=== PATIENT | male | born 1990 | race Caucasian/White ===

== ENCOUNTER 2016-10-18 16:58 | Emergency (ER) | payer SELFPAY ==
[2016-10-18 17:31] LABS: Hematocrit 42.9 % (42.0-52.0); Hemoglobin 15.1 gm/dL (13.5-18.0); Mean Cell Volume 83.3 fl (78-100); Mean Corpuscular Hemoglobin 29.3 pg (27-31); Mean Corpuscular Hgb Conc 35.2 g/dl (32-36); Mean Platelet Volume 8.3 fl (6.0-9.5); Neutrophil # 10.7 K/mm3 (1.3-6.0); Platelet Count 288 K/mm3 (150-450); Red Blood Count 5.15 M/mm3 (4.7-6.0); Red Cell Distribution Width 12.4 % (11.5-14.0); White Blood Count 12.7 K/mm3 (4.0-10.5)
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
[2016-10-18 17:55] LABS: Albumin * 4.1 gm/dl (3.4-5.0); Anion Gap 17.7 mmol/L (6.8-13.8); BUN/Creatinine Ratio 11.5 (9.0-21.6); Bilirubin, Total 0.7 mg/dL (0.0-1.1); Calcium * 8.4 mg/dL (7.9-10.9); Carbon Dioxide 24.3 mmol/L (24-32.6); TSH * 1.988 uIU/mL (0.358-3.74); Total Protein 7.4 gm/dL (6.2-8.2)
--- OUTSIDE RECORDS SUMMARY | 2016-10-18 18:25 | XMS REPORT | Continuity of Care Document ---
:1990 Author Organization [facility] ([facility]) [place] [address] Phone [phone] Care Team Providers Name Role Phone Provider, No-Primary Care Primary Care Provider Unavailable Source Comments This disclosure is being made pursuant to the Care Everywhere program, applicable federal and state laws, and may not contain all informaitonavailable regarding this patient.[facility] ([facility]) Active Allergies and Adverse Reactions Not on File Current Medications Not on file Active Problems Not on file Social History Tobacco Use Types Packs/Day Years Used Date Never Assessed Plan of Care Health Maintenance Due Date Last Done Comments Hepatitis B Vaccine (1 of 3 - Primary Series) 1990 Tdap Vaccine 02/18/2000 Lipid Disorder Screening 2007 MMR Vaccine 2007 Td Vaccine 2007 Varicella Vaccine (1 of 2 - Adult - No Evidence of 2007 Immunity) Influenza Vaccine: Seasonal (#1) 02/18/2016 Results from Last 3 Months Not on file
[2016-10-18 19:17] LABS: Urine Appearance Clear; Urine Bacteria None Seen; Urine Bilirubin Negative (NEGATIVE); Urine Blood Negative /ul (NEGATIVE); Urine Color Yellow; Urine Ketone Negative (NEGATIVE); Urine Nitrite Negative (NEGATIVE); Urine Protein Negative (NEGATIVE); Urine RBC None Seen /hpf (0-5); Urine Urobilinogen Normal (NORMAL); Urine WBC None Seen /hpf (0-5); Urine pH 5.5 pH (5.0-7.0)
[2016-10-18 19:20] LABS: Cocaine Ur Negative (NEGATIVE); Urine Barbiturate Negative (NEGATIVE); Urine Benzodiazepines Negative (NEGATIVE); Urine Opiates Negative (NEGATIVE); Urine PCP Negative (NEGATIVE)
[2016-10-18 19:21] LABS: Urine THC Positive (NEGATIVE)
[2016-10-18 21:38] VITALS: BP 116/97
== END 2016-10-18 21:36 | disposition home or self-care (01) ==
LOC: ER 16:58
DX: R56.9 Unspecified convulsions (principal); R53.81 Other malaise; F17.210 Nicotine dependence, cigarettes, uncomplicated
CPT/HCPCS: 36415; 70450; 80053; 80307; 81001; 84443; 85025; 96365; 99284; G0481

== ENCOUNTER 2016-10-20 11:04 | Emergency (ER) | payer SELFPAY ==
--- OUTSIDE RECORDS SUMMARY | 2016-10-20 13:11 | XMS REPORT | Continuity of Care Document ---
:1990 Author Organization [facility] ([facility]) [place] [address] Phone [phone] Care Team Providers Name Role Phone Provider, No-Primary Care Primary Care Provider Unavailable Source Comments This disclosure is being made pursuant to the Care Everywhere program, applicable federal and state laws, and may not contain all informaitonavailable regarding this patient.[facility] ([facility]) Active Allergies and Adverse Reactions Not on [...]
--- NOTE | 2016-10-20 13:21 | ERNOTE ---
Date of Service: 10/20/16 Time Seen by Provider: 10/20/16 12:54 Stated Complaint: SPITTING UP BLOOD Presenting Symptoms:: cough Source: patient Exam Limitations: no limitations Immunizations: IMMUNIZATION HX Immunizations Up to Date Yes History of Influenza Vaccine No Hx Pneumococcal Vaccination No Allergies/Adverse Reactions: Allergies No Known Allergies Allergy (Verified 10/20/16 11:28) Home Medications: HOME MEDICATIONS Amox Tr/Potassium Clavulanate [Augmentin 875-125 Tablet] 875 mg PO Q12H #20 tab 10/20/16 [Last Taken Unknown] levETIRAcetam [Keppra] 500 mg PO BID 10/20/16 [Last Taken Unknown] - History of Present Ilness Narrative: Pt. comes in with c/o spitting up blood ever since he had two seizures three days ago. Pt. denies any seizure activity or other injuries since his previous visit to this facility three days ago. Pt. denies any aggravating or alleviating factors. Pt. denies any change in the amount of blood that he is spitting up. Review of Systems - Review of Systems Constitutional: Present: no symptoms reported. Absent: recent illness, fever, chills, weakness, fatigue, malaise EYE: Present: no symptoms reported ENT: Present: other - spitting out blood. Absent: ear pain, ear discharge, pulling on ears, nose pain, nose congestion, nasal drainage, sore throat, throat swelling Respiratory: Present: no symptoms reported. Absent: shortness of breath, cough , wheezing Cardiology: Present: no symptoms reported. Absent: chest pain, palpitations, edema Gastrointestinal/Abdominal: Present: no symptoms reported. Absent: nausea, vomiting, diarrhea, abdominal pain Genitourinary: Present: no symptoms reported Musculoskeletal: Present: no symptoms reported. Absent: back pain, joint pain Neurological: Present: no symptoms reported. Absent: headache, dizziness/light- headedness, numbness, tingling All Other Systems: All systems neg except as marked - Patient's Past Medical History Patient History - Medical: No pertinent hx Patient History - Cardiac/Respiratory: No pertinent hx Patient History - Cancer: No Hx of Cancer Patient History - Surgical Procedures: No surgical history Patient History - Other: None - Family History Mother Family History - Medical: UTI'S Family History - Cardiac/Respiratory: Hypertension Father Family History - Cardiac/Respiratory: History Unknown Brother Family History - Medical: No pertinent hx, Other - Social History Living Situations: home Abuse History: No History of abuse Psych History: No pertinent hx Alcohol Use: occasionally Drug Use: none, marijuana - Immunizations Immunizations Up to Date: Yes Hx Pneumococcal Vaccination: No History of Influenza Vaccine: No Physical Exam - Physical Exam General Appearance: Present: wd/wn, alert, no apparent distress Eye Exam: Normal inspection: bilateral, PERRL: bilateral, EOMI: bilateral Ears, Nose, Throat: Present: nasal congestion, normal pharynx, other - tongue and oral mucus membranes intact blood notes in nares but nares intact feel that this is post nasal blood Neck: Present: normal inspection, nontender. Absent: lymphadenopathy (R), lymphadenopathy (L) Respiratory: Present: no respiratory distress, normal breath sounds, no accessory muscle use, chest nontender, lungs clear Cardiovascular/Chest: Present: regular rate, rhythm, no murmur, normal peripheral pulses Gastrointestinal/Abdominal: Present: normal bowel sounds, nontender, nondistended, soft, no organomegaly Back Exam: Present: normal inspection Extremity Exam: Present: normal inspection Skin Exam: Present: normal color, warm/dry. Absent: pallor, skin rash ED Progress - Date and Time Seen: Date and Time: 10/20/16 15:[address] Avila and we will start pt. on afrin and have him follow up with her tomorrow in [place]. - Results and Orders Patient's Lab Results:: I have reviewed the patient's lab results. - Vital Signs Patient's Vital Signs:: I have reviewed the patient's vital signs. Vital Signs: Vital Signs 10/20/16 11:21 Temperature 36.7 C Pulse Rate 81 Respiratory 18 Rate Blood Pressure 125/74 O2 Sat by Pulse 97 Oximetry - CT/Ultrasound CT/Ultrasound Narrative: CT with maxillary ridge and nasal bone fracture. - Progress/Reassessment Chief Complaint: Cough Departure - Departure Clinical Impression: Nasal bone fracture Qualifiers: Encounter type: initial encounter Fracture type: open Qualified Code(s): S02.2XXB - Fracture of nasal bones, initial encounter for open fracture Closed fracture of alveolar ridge of maxilla Qualifiers: Encounter type: initial encounter Qualified Code(s): S02.42XA - Fracture of alveolus of maxilla, initial encounter for closed fracture Disposition: Home self-care Condition: Good Instructions: Nasal Fracture Additional Instructions: Please follow up with Dr Avila tomorrow in [place] at the hosptial anytime after 9 am. Prescriptions: Amox Tr/Potassium Clavulanate [Augmentin 875-125 Tablet] 875 mg PO Q12H #20 tab
[2016-10-20 13:41] LABS: Hematocrit 44.2 % (42.0-52.0); Hemoglobin 15.6 gm/dL (13.5-18.0); Mean Cell Volume 82.3 fl (78-100); Mean Corpuscular Hemoglobin 29.1 pg (27-31); Mean Corpuscular Hgb Conc 35.3 g/dl (32-36); Mean Platelet Volume 8.6 fl (6.0-9.5); Neutrophil # 5.3 K/mm3 (1.3-6.0); Neutrophil % 66.2 % (42-75.0); Platelet Count 283 K/mm3 (150-450); Red Blood Count 5.37 M/mm3 (4.7-6.0); Red Cell Distribution Width 12.4 % (11.5-14.0)
[2016-10-20 13:49] LABS: Prothrombin Time (Patient) 11.7 Seconds (9.4-11.4)
[2016-10-20 13:51] LABS: INR 1.13 INR (0.90-1.10)
[2016-10-20] MEDS ORDERED: OXYMETAZOLINE HCL 150 SPRAY BTL NS ONE (14:29)
[2016-10-20] MEDS ORDERED: OXYMETAZOLINE HCL 150 SPRAY BTL ONE (14:39)
[2016-10-20 15:37] VITALS: BP 154/73
== END 2016-10-20 15:37 | disposition home or self-care (01) ==
LOC: ER 11:04
DX: S02.2XXB Fracture of nasal bones, initial encounter for open fracture (principal); S02.42XA Fracture of alveolus of maxilla, initial encounter for closed fracture

== ENCOUNTER 2016-12-01 16:43 | Emergency (ER) | payer SELFPAY ==
[2016-12-01 17:18] LABS: Hematocrit 41.7 % (42.0-52.0); Mean Cell Volume 81.4 fl (78-100); Mean Corpuscular Hemoglobin 29.3 pg (27-31); Mean Platelet Volume 8.5 fl (6.0-9.5); Neutrophil # 3.8 K/mm3 (1.3-6.0); Neutrophil % 58.8 % (42-75.0); Platelet Count 326 K/mm3 (150-450); Red Blood Count 5.12 M/mm3 (4.7-6.0); Red Cell Distribution Width 12.2 % (11.5-14.0); White Blood Count 6.4 K/mm3 (4.0-10.5)
[2016-12-01 17:34] LABS: ALT 19 U/L (19-67); AST 15 U/L (0-48); Albumin * 4.4 gm/dl (3.4-5.0); Alkaline Phosphatase * 57 U/L (50-170); Anion Gap 14.3 mmol/L (6.8-13.8); BUN/Creatinine Ratio 11.5 (9.0-21.6); Bilirubin, Total 0.9 mg/dL (0.0-1.1); Blood Urea Nitrogen 13 mg/dL (6-23); Ca. Corrected For Albumin 8.8 mg/dL (8.4-10.2); Calcium * 9.4 mg/dL (7.9-10.9); Carbon Dioxide 28.8 mmol/L (24-32.6); Chloride 105 mmol/L (97-106); Glucose * 92 mg/dL (70-110); Potassium 4.1 mmol/L (3.4-4.6); Salicylate Less than 2.8 mg/dL (2.8-20.0); Sodium 144 mmol/L (132-142); TSH * 2.018 uIU/mL (0.358-3.74); Total Protein 7.7 gm/dL (6.2-8.2)
[2016-12-01 20:10] LABS: Urine Bilirubin Negative (NEGATIVE); Urine Blood Negative /ul (NEGATIVE); Urine Ketone 15 mg/dL (NEGATIVE); Urine Nitrite Negative (NEGATIVE); Urine Protein Negative (NEGATIVE); Urine Specific Gravity >=1.030 SP.GR. (1.005-1.030); Urine Urobilinogen Normal (NORMAL)
[2016-12-01 20:20] LABS: Urine Appearance Clear; Urine Bacteria None Seen; Urine Color Yellow; Urine RBC None Seen /hpf (0-5); Urine WBC None Seen /hpf (0-5)
[2016-12-01 20:23] LABS: Cocaine Ur Negative (NEGATIVE); Urine Barbiturate Negative (NEGATIVE); Urine Benzodiazepines Negative (NEGATIVE); Urine Opiates Negative (NEGATIVE); Urine PCP Negative (NEGATIVE); Urine THC Positive (NEGATIVE)
--- NOTE | 2016-12-01 20:34 | ERNOTE ---
Psychological HPI - General Chief Complaint: Psychiatric Problem Source: Reports: patient Exam Limitations: Reports: no limitations - Immun/Allergies/Home Medications Allergies/Adverse Reactions: Allergies No Known Allergies Allergy (Verified 12/01/16 16:55) Home Medications: HOME MEDICATIONS NK [No Home Medication] 12/01/16 [Last Taken Unknown] - History of Present Illness Narrative: Here for having thoughts of hurting and killing himself, he has a plan and admits to having felt depressed Time Seen by Provider: 12/01/16 20:29 Review of Systems - Review of Systems Constitutional: Present: no symptoms reported EYE: Present: no symptoms reported ENT: Present: no symptoms reported Respiratory: Present: no symptoms reported Cardiology: Present: no symptoms reported Gastrointestinal/Abdominal: Present: no symptoms reported Genitourinary: Present: no symptoms reported - Patient's Past Medical History Patient History - Medical: No pertinent hx Patient History - Cardiac/Respiratory: No pertinent hx Patient History - Cancer: No Hx of Cancer Patient History - Surgical Procedures: No surgical history Patient History - Other: None - Family History Mother Family History - Medical: UTI'S Family History - Cardiac/Respiratory: Hypertension Father Family History - Cardiac/Respiratory: History Unknown Brother Family History - Medical: No pertinent hx, Other - Social History Living Situations: home Abuse History: No History of abuse Psych History: No pertinent hx Alcohol Use: occasionally Drug Use: none, marijuana - Immunizations Immunizations Up to Date: Yes Hx Pneumococcal Vaccination: No History of Influenza Vaccine: No Physical Exam - Physical Exam General Appearance: Present: wd/wn, alert, no apparent distress Ears, Nose, Throat: Present: normal ENT inspection Neck: Present: normal inspection, supple Respiratory: Present: no respiratory distress, normal breath sounds, no accessory muscle use, chest nontender, lungs clear Cardiovascular/Chest: Present: regular rate, rhythm, no murmur Neurological Exam: Present: alert, oriented, normal mood/affect, no motor/ sensory deficits ED Progress - Vital Signs Patient's Vital Signs:: I have reviewed the patient's vital signs. Vital Signs: Vital Signs 12/01/16 16:49 Temperature 35.9 C L Pulse Rate 72 Respiratory 14 Rate Blood Pressure 135/91 O2 Sat by Pulse 98 Oximetry - Progress/Reassessment Chief Complaint: Psychiatric Problem Plan - Plan Plan: Will ask [facility] to evaluate pt and arrive for pat to be taken to a facility to be safe and to address his thoughts of suicide.[facility] did accept him to their facility to keep patient safe. pt is stable for transfer Departure Clinical Impression: Suicidal ideations Clinical Impression: (Ruled Out): Substance abuse - Departure Disposition: Other home health
--- OUTSIDE RECORDS SUMMARY | 2016-12-01 20:36 | XMS REPORT | Continuity of Care Document ---
:1990 Author Organization [facility] ([facility]) [place] [address] Phone [phone] Care Team Providers Name Role Phone Provider, No-Primary Care Primary Care Provider Unavailable Source Comments This disclosure is being made pursuant to the Care Everywhere program, applicable federal and state laws, and may not contain all informaitonavailable regarding this patient.[facility] ([facility]) Active Allergies and Adverse Reactions Not on [...]
[2016-12-02 00:31] VITALS: BP 124/65
== END 2016-12-02 00:20 | disposition short-term general hospital (02) ==
LOC: ER 16:43
DX: R45.851 Suicidal ideations (principal)
CPT/HCPCS: 36415; 80053; 80307; 81001; 84443; 85025; 99283; G0480; G0481

== ENCOUNTER 2018-05-29 08:04 | Observation (INO) ==
[2018-05-29] MEDS ORDERED: LORazepam 2 MG/ML DISP.SYRIN ONE ×3 (08:23→10:07)
[2018-05-29] MEDS ORDERED: LORazepam 2 MG/ML DISP.SYRIN IM ONE ×3 (08:26→08:56)
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
[2018-05-29 09:26] LABS: Hematocrit 40.1 % (42.0-52.0); Hemoglobin 14.2 gm/dL (13.5-18.0); Mean Cell Volume 82.5 fl (78-100); Mean Corpuscular Hemoglobin 29.2 pg (27-31); Mean Corpuscular Hgb Conc 35.4 g/dl (32-36); Mean Platelet Volume 8.7 fl (8-11.3); Neutrophil # 7.1 K/mm3 (1.3-6.0); Neutrophil % 71.9 % (42-75.0); Platelet Count 311 K/mm3 (150-450); Red Blood Count 4.86 M/mm3 (4.7-6.0); Red Cell Distribution Width 13.1 % (11.5-14.0); White Blood Count 9.9 K/mm3 (4.0-10.5)
[2018-05-29 09:34] LABS: Albumin * 4.1 gm/dl (3.4-5.0); Anion Gap 19.9 mmol/L (6.8-13.8); BUN/Creatinine Ratio 13.1 (9.0-21.6); Bilirubin, Total 0.5 mg/dL (0.0-1.1); Ca. Corrected For Albumin 8.4 mg/dL (8.4-10.2); Calcium * 8.8 mg/dL (7.9-10.9); Potassium 3.9 mmol/L (3.4-4.6); Total Protein 7.5 gm/dL (6.2-8.2)
[2018-05-29] MEDS ORDERED: NORMAL SALINE 500 ML IV ONE (09:50)
[2018-05-29 09:51] LABS: Urine Appearance Clear (CLEAR); Urine Bilirubin Negative (NEGATIVE); Urine Color Yellow; Urine Ketone Negative (NEGATIVE)
[2018-05-29 09:52] LABS: Urine Bacteria None Seen; Urine Nitrite Negative (NEGATIVE); Urine Protein Negative (NEGATIVE); Urine RBC 0-5 /hpf (0-5); Urine Urobilinogen Normal (NORMAL); Urine WBC 0-5 /hpf (0-5); Urine pH 5.5 pH (5.0-7.0)
[2018-05-29 09:53] LABS: Urine Blood 5 /ul (NEGATIVE)
[2018-05-29 09:56] LABS: Cocaine Ur Negative (NEGATIVE); Urine Barbiturate Negative (NEGATIVE); Urine Benzodiazepines Negative (NEGATIVE); Urine Opiates Negative (NEGATIVE); Urine PCP Negative (NEGATIVE)
[2018-05-29 09:57] LABS: Urine THC Positive (NEGATIVE)
[2018-05-29] MEDS ORDERED: LORazepam 2 MG/ML DISP.SYRIN IV ONE ×2 (10:12→12:22)
[2018-05-29] MEDS: NORMAL SALINE 1,000 ML IV PRN ×2 (10:26→12:07)
[2018-05-29] MEDS: levETIRAcetam 500 MG TABLET PO SCH ×2 (15:13→20:36)
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
[2018-05-29] MEDS: ACETAMINOPHEN 500 MG TABLET PO PRN (20:36)
[2018-05-29] MEDS ORDERED: levETIRAcetam 500 MG TABLET PO SCH (21:00)
[2018-05-30] MEDS: NORMAL SALINE 1,000 ML IV PRN (01:12)
[2018-05-30] MEDS: ACETAMINOPHEN 500 MG TABLET PO PRN (05:39)
[2018-05-30] MEDS ORDERED: hydrOXYzine HCL 25 MG TABLET PO SCH (09:00)
[2018-05-30] MEDS ORDERED: SERTRALINE HCL 50 MG TABLET PO SCH ×3 (09:00)
[2018-05-30] MEDS: levETIRAcetam 500 MG TABLET PO SCH (09:09)
--- NOTE | 2018-05-30 11:25 | DS ---
(1) Seizures Problem: Chronic Qualifiers: Convulsion type: post-traumatic Qualified Code(s): R56.1 - Post traumatic seizures (2) Combative behavior Problem: Resolved (3) Altered mental status Problem: Resolved Qualifiers: Altered mental status type: transient alteration of awareness Qualified Code(s): R40.4 - Transient alteration of awareness Description of Stay: Nimesh Bonilla is a 28 yo wh. male who was admitted for seizures and combative behavior. His initial seizure yesterday was at home. He had a 2nd seizure in the ER. He was given ativan, and Keppra IV. I started on therapeutic dosing of Keppra and increased the dose of his Sertraline to 50mg/day. close monitoring of his depression is recommended in followup tx. This morning he is alert and conversant. He doesn't remember anything about my talking to him yesterday or the examination. His neurological exam today is normal. His affect is despondent. Procedures Performed: none Results and Findings: Lab Pending Results 05/29/18 09:15: WBC 9.9, RBC 4.86, Hgb 14.2, Hct 40.1 L, MCV 82.5, MCH 29.2, MCHC 35.4, RDW 13.1, Plt Count 311, MPV 8.7, Immature Gran % (Auto) 0.70 H, Immature Gran # (Auto) 0.07 H, Neutrophils % 71.9, Lymphocytes % 18.1 L, Monocytes % 8.2, Eosinophils % 0.5, Basophils % 0.6, Nucleated RBC % 0.0, Neutrophils # 7.1 H, Lymphocytes # 1.79, Monocytes # 0.8, Eosinophils # 0.1, Absolute Basophils 0.1 05/29/18 09:15: Sodium 141, Plasma Sodium 141, Potassium 3.9, Chloride 105, Carbon Dioxide 20.0 L, Anion Gap 19.9 H, BUN 17, Creatinine 1.30, Est GFR (Non- Af Amer) 69, BUN/Creatinine Ratio 13.1, Random Glucose 99, Calcium 8.8, Calcium Adj for Albumin 8.4, Total Bilirubin 0.5, AST 17, ALT 34, Alkaline Phosphatase 55, Total Protein 7.5, Albumin 4.1 05/29/18 09:41: Urine Color Yellow, Urine Appearance Clear, Urine pH 5.5, Ur Specific [place] 1.030, Urine Protein Negative, Urine Glucose (UA) Negative, Urine Ketones Negative, Urine Blood 5 H, Urine Nitrate Negative, Urine Bilirubin Negative, Urine Urobilinogen Normal, Ur Leukocyte Esterase Negative, Urine RBC 0-5, Urine WBC 0-5, Ur Epithelial Cells None seen, Urine Bacteria None seen, Urine Culture Comments No culture indicated 05/29/18 09:41: Urine Opiates Screen Negative, Barbiturate Screen Negative, Ur Phencyclidine Scrn Negative, Urine Amphetamine Negative, U Benzodiazepines Scrn Negative, Urine Cocaine Screen Negative, Urine Marijuana (THC) Positive H Discharge Location: Home Disposition: Home self-care Condition: Fair Discharge Activity: Activity as tolerated Discharge Diet: General/regular food Additional Patient Instructions (free text): See PCP in 2 weeks in the office. Do not stop or miss any doses of your Keppra. Get adequate sleep each night Avoid alcohol avoid flashing lights avoid stimulants. (energy drinks, amphetamines, etc.) Complete Home Medications List: Complete Home Medication List: Acetaminophen [Tylenol] 1,000 mg PO Q6H PRN tablet 05/30/18 Sertraline HCl [Zoloft] 50 mg PO DAILY #30 tablet 05/30/18 levETIRAcetam [Keppra] 1,500 mg PO BID #180 tablet 05/30/18
[2018-05-30 12:18] VITALS: BP 131/72
== END 2018-05-30 12:00 | disposition home or self-care (01) ==
LOC: ER 08:04 → INTOOBSV 13:35 → MS 13:35
PROVIDERS: ADMIT Family Medicine; ATTEND Family Medicine
CPT/HCPCS: 36415; 80053; 80177; 80307; 81001; 85025; 93005; 96365; 96367; 96372; 96375; 99285; G0378; G0479

== ENCOUNTER 2018-09-07 15:24 | Observation (INO) ==
[2018-09-07] MEDS ORDERED: LORazepam 2 MG/ML DISP.SYRIN IM ONE (15:25)
[2018-09-07] MEDS ORDERED: HALOPERIDOL LACTATE 5 MG/ML VIAL IM ONE ×2 (15:25→16:42)
[2018-09-07] MEDS ORDERED: NORMAL SALINE 1,000 ML IV ONE (15:30)
[2018-09-07] MEDS ORDERED: ONDANSETRON HCL/PF 2 MG/ML VIAL ONE (15:55)
[2018-09-07] MEDS ORDERED: ONDANSETRON HCL/PF 2 MG/ML VIAL IV ONE (15:56)
[2018-09-07 16:26] LABS: Hematocrit 40.5 % (42.0-52.0); Hemoglobin 14.4 gm/dL (13.5-18.0); Mean Cell Volume 82.3 fl (78-100); Mean Corpuscular Hemoglobin 29.3 pg (27-31); Mean Corpuscular Hgb Conc 35.6 g/dl (32-36); Mean Platelet Volume 8.2 fl (8-11.3); Neutrophil % 87.6 % (42-75.0); Platelet Count 267 K/mm3 (150-450); Red Blood Count 4.92 M/mm3 (4.7-6.0); Red Cell Distribution Width 12.8 % (11.5-14.0); White Blood Count 11.4 K/mm3 (4.0-10.5)
[2018-09-07] MEDS ORDERED: LORazepam 2 MG/ML DISP.SYRIN ONE (16:43)
[2018-09-07] MEDS ORDERED: LORazepam 2 MG/ML DISP.SYRIN IV ONE (16:43)
[2018-09-07] MEDS ORDERED: HALOPERIDOL LACTATE 5 MG/ML VIAL ONE (16:43)
[2018-09-07] MEDS ORDERED: cefTRIAXone SODIUM 1,000 MG/100 ML BAG IV ONE (16:43)
[2018-09-07 16:48] LABS: ALT 25 U/L (19-67); AST 21 U/L (0-48); Albumin * 4.2 gm/dl (3.4-5.0); Alkaline Phosphatase * 72 U/L (50-170); BUN/Creatinine Ratio 13.1 (9.0-21.6); Bilirubin, Total 0.3 mg/dL (0.0-1.1); Blood Urea Nitrogen 14 mg/dL (6-23); CK Total * 132 U/L (0-259); CRP 4.9 mg/dL (0.0-0.9); Ca. Corrected For Albumin 8.2 mg/dL (8.4-10.2); Calcium * 8.7 mg/dL (7.9-10.9); Carbamazepine 7.4 mcg/mL (4.0-12.0); Carbon Dioxide 24.3 mmol/L (24-32.6); Chloride 104 mmol/L (97-106); Glucose * 167 mg/dL (70-110); Lipase 337 U/L (73-393); Potassium 4.3 mmol/L (3.4-4.6); Salicylate 3.6 mg/dL (2.8-20.0); Sodium 142 mmol/L (132-142); TSH * 1.545 uIU/mL (0.358-3.74); Total Protein 7.8 gm/dL (6.2-8.2)
[2018-09-07 16:51] LABS: Troponin I Less than 0.017 ng/mL (0.00-0.10)
[2018-09-07] MEDS ORDERED: ACYCLOVIR SODIUM 1,000 MG in DEXTROSE 5 % IN WATER 250 ML IV ONE ×2 (17:30)
[2018-09-07 17:41] LABS: Urine Bilirubin Negative (NEGATIVE); Urine Blood Negative /ul (NEGATIVE); Urine Ketone 5 mg/dL (NEGATIVE); Urine Nitrite Negative (NEGATIVE); Urine Protein 30 mg/dL (NEGATIVE); Urine Specific Gravity >=1.030 SP.GR. (1.005-1.030); Urine Urobilinogen Normal (NORMAL)
[2018-09-07 17:52] LABS: Urine Appearance Clear (CLEAR); Urine Bacteria TRACE; Urine Color Yellow; Urine Hyaline Cast 0-5 /LPF; Urine Mucus Few - 1+; Urine RBC 0-5 /hpf (0-5); Urine WBC 0-5 /hpf (0-5)
[2018-09-07 17:55] LABS: Cocaine Ur Negative (NEGATIVE); Urine Barbiturate Negative (NEGATIVE); Urine Benzodiazepines Negative (NEGATIVE); Urine Opiates Negative (NEGATIVE); Urine PCP Negative (NEGATIVE); Urine THC Positive (NEGATIVE)
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
[2018-09-07] MEDS ORDERED: LORazepam 1 MG TABLET PO PRN (20:56)
[2018-09-07] MEDS ORDERED: DOXYCYCLINE MONOHYDRATE 25 MG/5 ML PO SCH (21:00)
[2018-09-07] MEDS ORDERED: DOXYCYCLINE HYCLATE 100 MG TABLET PO SCH (23:00)
[2018-09-07] MEDS: NAPROXEN 500 MG TABLET PO SCH (23:01)
[2018-09-07] MEDS: carBAMazepine 200 MG TABLET PO SCH (23:01)
[2018-09-07] MEDS: GABAPENTIN 300 MG CAPSULE PO SCH (23:01)
[2018-09-07] MEDS: FLUoxetine HCL 20 MG CAPSULE PO SCH (23:01)
[2018-09-07] MEDS ORDERED: diphenhydrAMINE HCL 50 MG CAPSULE PO ONE (23:06)
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
[2018-09-08] MEDS ORDERED: AZITHROMYCIN 250 MG TABLET PO ONE (09:00)
--- NOTE | 2018-09-08 09:09 | DS ---
(1) Seizures Problem: Chronic Qualifiers: Convulsion type: post-traumatic Qualified Code(s): R56.1 - Post traumatic seizures (2) Drug rash Problem: Acute (3) Epididymitis Problem: Acute Description of Stay: Nimesh is a 28 yo male with episodes of altered mental state yesterday. He has known seizure disorder. His girlfriend reports he was confused and combative then had one of his usual absence seizures, then began having convulsions. Since his arrival to the floor he has been at his baseline and no issues. He and his girlfriend are now uncertain if he has been taking his seizure medications. He had recently been started on doxycycline for epididymitis but has an apparent drug rash. This will be discontinued and he will be given 1000mg of azithromycin prior to discharge for treatment of epidiymitis. He was given benedryl and rash improved. Seizure medications will be continued. He will be scheduled a follow up with [facility]. Procedures Performed: none Results and Findings: Lab Pending Results 09/07/18 16:20: WBC 11.4 H, RBC 4.92, Hgb 14.4, Hct 40.5 L, MCV 82.3, MCH 29.3, MCHC 35.6, RDW 12.8, Plt Count 267, MPV 8.2, Immature Gran % (Auto) 0.60 H, Immature Gran # (Auto) 0.07 H, Neutrophils % 87.6 H, Lymphocytes % 6.9 L, Monocytes % 4.6, Eosinophils % 0.0, Basophils % 0.3, Nucleated RBC % 0.0, Neutrophils # 10.0 H, Lymphocytes # 0.79 L, Monocytes # 0.5, Eosinophils # 0.0, Absolute Basophils 0.0 09/07/18 16:20: Sodium 142, Plasma Sodium 143 H, Potassium 4.3, Chloride 104, Carbon Dioxide 24.3, Anion Gap 18.0 H, BUN 14, Creatinine 1.07, Est GFR (Non-Af Amer) 87, BUN/Creatinine Ratio 13.1, Random Glucose 167 H, Calcium 8.7, Calcium Adj for Albumin 8.2 L, Total Bilirubin 0.3, AST 21, ALT 25, Alkaline Phosphatase 72, Creatine Kinase 132, Troponin I Less than 0.017, C-Reactive Prot, Quant 4.9 H, Total Protein 7.8, Albumin 4.2, Lipase 337, TSH 1.545, Salicylates 3.6, Acetaminophen Less than 0.2 L, Carbamazepine 7.4, Ethyl Alcohol Less than 3.0 09/07/18 16:20: Lactic Acid, Venous 4.3 H* 09/07/18 17:28: Urine Color Yellow, Urine Appearance Clear, Urine pH 6.0, Ur Specific [place] >=1.030, Urine Protein 30 H, Urine Glucose (UA) Negative, Urine Ketones 5, Urine Blood Negative, Urine Nitrate Negative, Urine Bilirubin Negative, Prot Sulfosalicylic Acd 2+ H, Urine Urobilinogen Normal, Ur Leukocyte Esterase Negative, Urine RBC 0-5, Urine WBC 0-5, Ur Epithelial Cells 5-10 H, Urine Bacteria Trace, Hyaline Casts 0-5 H, Urine Mucus Few - 1+ H, Urine Culture Comments No culture indicated 09/07/18 17:28: Urine Opiates Screen Negative, Barbiturate Screen Negative, Ur Phencyclidine Scrn Negative, Urine Amphetamine Negative, U Benzodiazepines Scrn Negative, Urine Cocaine Screen Negative, Urine Marijuana (THC) Positive H 09/07/18 20:10: Lactic Acid, Venous 3.2 H* Discharge Location: Home Disposition: Home self-care Condition: Stable Discharge Activity: Activity as tolerated Discharge Diet: General/regular food Referrals: Miguel Castellon DO [Primary Care Provider] - One Week Jeanna Perez MD [Non Staff Physicians] - (Next available to establish for seizures.) Problem Oriented Discharge Instructions to Patient/Family: Seizure, Adult, [id number], Epididymitis Additional Patient Instructions (free text): No additional antibiotics should be needed. In place of the doxycyline we are treating with a one time dose of azithromycin that was given in the hospital. Continue to use naproxen or aleve or ibuprofen and ice to help with swelling. Wear supporting underwear, no boxers. Complete Home Medications List: Complete Home Medication List: carbamazepine 200 mg tablet 200 mg PO BID #60 tab 06/22/18 fluoxetine 20 mg tablet 20 mg PO .COMPLEX #30 tab 08/18/18 gabapentin 300 mg capsule 300 mg PO TID #90 cap 08/18/18 lorazepam 1 mg tablet 1 mg PO BID-TID PRN #20 tab 08/18/18 Naproxen [Naprosyn] 500 mg PO BID #60 tab 09/04/18 FLUoxetine HCL [Prozac] 20 mg PO DAILY cap 09/08/18 Gabapentin [Neurontin] 300 mg PO TID capsule 09/08/18 LORazepam [Ativan] 1 mg PO TID PRN tablet 09/08/18 Naproxen [Naprosyn] 500 mg PO BID tablet 09/08/18 carBAMazepine [Tegretol] 200 mg PO BID tab 09/08/18
[2018-09-08] MEDS: GABAPENTIN 300 MG CAPSULE PO SCH (09:22)
[2018-09-08] MEDS: NAPROXEN 500 MG TABLET PO SCH (09:22)
[2018-09-08] MEDS: FLUoxetine HCL 20 MG CAPSULE PO SCH (09:22)
[2018-09-08] MEDS: carBAMazepine 200 MG TABLET PO SCH (09:22)
[2018-09-08 09:56] VITALS: BP 130/73
== END 2018-09-08 10:15 | disposition home or self-care (01) ==
LOC: SCU 15:24 → MS 15:24 → ER 15:24 → SCU 19:50
PROVIDERS: ADMIT Family Medicine; ATTEND Family Medicine
CPT/HCPCS: 36415; 70450; 80050; 80156; 80177; 80307; 80320; 80329; 81001; 82550; 83605; 83690; 84484; 86140; 86592; 93005; 96372; 96374; 96375; 99285; G0378; G0480; G0481; J2405

== ENCOUNTER 2020-05-30 06:06 | Observation (INO) ==
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
[2020-05-30 06:35] LABS: Hematocrit 44.4 % (42.0-52.0); Hemoglobin 14.9 gm/dL (13.5-18.0); Mean Cell Volume 84.7 fl (78-100); Mean Corpuscular Hemoglobin 28.4 pg (27-31); Mean Corpuscular Hgb Conc 33.6 g/dl (32-36); Neutrophil # 9.2 K/mm3 (1.3-6.0); Neutrophil % 74.3 % (42-75.0); Platelet Count 332 K/mm3 (150-450); Red Blood Count 5.24 M/mm3 (4.7-6.0); Red Cell Distribution Width 12.9 % (11.5-14.0); White Blood Count 12.4 K/mm3 (4.0-10.5)
[2020-05-30 06:52] LABS: Albumin * 3.8 gm/dl (3.4-5.0); Anion Gap 25.5 mmol/L (6.8-13.8); BUN/Creatinine Ratio 11.5 (9.0-21.6); Bilirubin, Total 0.2 mg/dL (0.0-1.1); Ca. Corrected For Albumin 8.5 mg/dL (8.4-10.2); Calcium * 8.7 mg/dL (7.9-10.9); Carbamazepine 4.6 mcg/mL (4.0-12.0); Carbon Dioxide 14.4 mmol/L (24-32.6); Potassium 3.9 mmol/L (3.4-4.6); Total Protein 7.5 gm/dL (6.2-8.2)
[2020-05-30] MEDS ORDERED: NORMAL SALINE 1,000 ML IV ONE (08:32)
[2020-05-30] MEDS ORDERED: LORazepam 2 MG/ML DISP.SYRIN IM ONE (09:07)
[2020-05-30] MEDS ORDERED: HALOPERIDOL LACTATE 5 MG/ML VIAL IM ONE (09:07)
[2020-05-30] MEDS ORDERED: diphenhydrAMINE HCL 50 MG/ML VIAL IM ONE (09:08)
[2020-05-30 09:49] LABS: Urine Bilirubin Negative (NEGATIVE); Urine Blood Negative /ul (NEGATIVE); Urine Ketone Negative (NEGATIVE); Urine Nitrite Negative (NEGATIVE); Urine Protein Negative (NEGATIVE); Urine Specific Gravity 1.015 SP.GR. (1.005-1.030); Urine Urobilinogen Normal (NORMAL)
[2020-05-30 10:01] LABS: Urine Appearance Clear (CLEAR); Urine Bacteria TRACE; Urine Color Yellow; Urine RBC TRACE /hpf (0-5); Urine WBC TRACE /hpf (0-5)
[2020-05-30 10:06] LABS: Cocaine Ur Negative (NEGATIVE); Urine Barbiturate Negative (NEGATIVE); Urine Benzodiazepines Positive (NEGATIVE); Urine Opiates Negative (NEGATIVE); Urine PCP Negative (NEGATIVE); Urine THC Positive (NEGATIVE)
[2020-05-30 10:14] LABS: Salicylate 3.1 mg/dL (2.8-20.0)
[2020-05-30] MEDS ORDERED: FLU VACC QS2020-21(6MOS UP)/PF 60 MCG/0.5 ML SYRINGE IM ONE (13:00)
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
[2020-05-30 18:48] VITALS: BP 0/0
== END 2020-05-30 15:35 | disposition left against medical advice (07) ==
LOC: MS 06:06 → ER 06:06 → MS 11:45
PROVIDERS: ADMIT Family Medicine; ATTEND Family Medicine

== ENCOUNTER 2020-11-22 08:35 | Observation (INO) ==
[2020-11-22] MEDS ORDERED: LORazepam 2 MG/ML DISP.SYRIN ONE (08:38)
[2020-11-22] MEDS ORDERED: LORazepam 2 MG/ML DISP.SYRIN IM ONE (08:50)
[2020-11-22] MEDS ORDERED: NORMAL SALINE 1,000 ML IV ONE (08:53)
[2020-11-22] MEDS ORDERED: HALOPERIDOL LACTATE 5 MG/ML VIAL IM ONE (08:57)
[2020-11-22] MEDS ORDERED: diphenhydrAMINE HCL 50 MG/ML VIAL IM ONE (08:57)
[2020-11-22] MEDS ORDERED: HALOPERIDOL LACTATE 5 MG/ML VIAL ONE (08:59)
[2020-11-22] MEDS ORDERED: diphenhydrAMINE HCL 50 MG/ML VIAL ONE (08:59)
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
[2020-11-22 09:23] LABS: Cocaine Ur Negative (NEGATIVE); Urine Barbiturate Negative (NEGATIVE); Urine Benzodiazepines Negative (NEGATIVE); Urine Opiates Negative (NEGATIVE); Urine PCP Negative (NEGATIVE); Urine THC Positive (NEGATIVE)
[2020-11-22] MEDS ORDERED: LORazepam 2 MG/ML DISP.SYRIN IV ONE (09:29)
[2020-11-22 10:45] LABS: Hematocrit 41.9 % (42.0-52.0); Hemoglobin 14.5 gm/dL (13.5-18.0); Mean Cell Volume 84.8 fl (78-100); Mean Corpuscular Hemoglobin 29.4 pg (27-31); Mean Corpuscular Hgb Conc 34.6 g/dl (32-36); Mean Platelet Volume 8.4 fl (8-11.3); Neutrophil # 10.8 K/mm3 (1.3-6.0); Neutrophil % 85.6 % (42-75.0); Platelet Count 265 K/mm3 (150-450); Red Blood Count 4.94 M/mm3 (4.7-6.0); Red Cell Distribution Width 12.5 % (11.5-14.0); White Blood Count 12.6 K/mm3 (4.0-10.5)
[2020-11-22 11:08] LABS: ALT 30 U/L (19-67); AST 21 U/L (0-48); Alkaline Phosphatase * 71 U/L (50-170); Anion Gap 15.4 mmol/L (6.8-13.8); BUN/Creatinine Ratio 11.5 (9.0-21.6); Bilirubin, Total 0.2 mg/dL (0.0-1.1); Blood Urea Nitrogen 13 mg/dL (6-23); CK Total * 215 U/L (0-259); Ca. Corrected For Albumin 8.2 mg/dL (8.4-10.2); Calcium * 8.5 mg/dL (7.9-10.9); Carbamazepine 4.2 mcg/mL (4.0-12.0); Carbon Dioxide 21.8 mmol/L (24-32.6); Chloride 107 mmol/L (97-106); Glucose * 112 mg/dL (70-110); Potassium 4.2 mmol/L (3.4-4.6); Salicylate 4.1 mg/dL (2.8-20.0); Sodium 140 mmol/L (132-142); TSH * 1.607 uIU/mL (0.358-3.74); Total Protein 7.6 gm/dL (6.2-8.2)
[2020-11-22] MEDS ORDERED: ACETAMINOPHEN 325 MG TABLET PO PRN (13:04)
[2020-11-22] MEDS ORDERED: LORazepam 1 MG TABLET PO PRN (13:05)
[2020-11-22 14:59] VITALS: BP 121/53
--- NOTE | 2020-11-22 16:42 | DS ---
Date of Discharge:: 11/22/20 Hospital Course: Patient was brought in to the ER by EMS for 2 witnessed seizures that occurred this morning. His girlfriend reports that the patient had 2 seizures and was aggressive and confused afterwards. The patient has a long history of epilepsy and has been hospitalized for the same thing several times in the recent past. During each hospitalization he signed AMA after waking up from his postictal state. Today with no exception. Several hours after being taken to the floor the patient woke up and was adamant about leaving the hospital, therefore he signed AMA. No other seizures were reported during the hospitalization. Procedures Performed: none Results and Findings: Lab Pending Results 11/22/20 09:00: Urine Opiates Screen Negative, Barbiturate Screen Negative, Ur Phencyclidine Scrn Negative, Urine Amphetamine Negative, U Benzodiazepines Scrn Negative, Urine Cocaine Screen Negative, Urine Marijuana (THC) Positive H 11/22/20 10:38: WBC 12.6 H, RBC 4.94, Hgb 14.5, Hct 41.9 L, MCV 84.8, MCH 29.4, MCHC 34.6, RDW 12.5, Plt Count 265, MPV 8.4, Immature Gran % (Auto) 0.40, Immature Gran # (Auto) 0.05 H, Neutrophils % 85.6 H, Lymphocytes % 7.2 L, Monocytes % 6.4, Eosinophils % 0.1, Basophils % 0.3, Nucleated RBC % 0.0, Neutrophils # 10.8 H, Lymphocytes # 0.91 L, Monocytes # 0.8, Eosinophils # 0.0, Absolute Basophils 0.0 11/22/20 10:38: Sodium 140, Plasma Sodium 140, Potassium 4.2, Chloride 107 H, Carbon Dioxide 21.8 L, Anion Gap 15.4 H, BUN 13, Creatinine 1.13, Est GFR (Non- Af Amer) 80, BUN/Creatinine Ratio 11.5, Random Glucose 112 H, Calcium 8.5, Calcium Adj for Albumin 8.2 L, Total Bilirubin 0.2, AST 21, ALT 30, Alkaline Phosphatase 71, Creatine Kinase 215, Total Protein 7.6, Albumin 4.0, TSH 1.607, Salicylates 4.1, Acetaminophen Less than 0.2 L, Carbamazepine 4.2, Ethyl Alcohol Less than 3.0 11/22/20 11:40: SARS-CoV-2 (PCR) Not detected Discharge Location: Home Disposition: Against medical advice Condition: Fair Discharge Activity: Activity as tolerated Discharge Diet: General/regular food Referrals: Vi Reyes MD [Primary Care Provider] - Complete Home Medications List: Complete Home Medication List: Carbamazepine [Carbamazepine ER] 400 mg PO BID 08/24/20 venlafaxine 75 mg tablet 75 mg PO DAILY #90 tab 09/05/20 lacosamide 50 mg tablet 200 mg PO BID tab 10/29/20
[2020-11-22] MEDS ORDERED: PANTOPRAZOLE SODIUM 20 MG TABLET.DR PO SCH (21:00)
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
== END 2020-11-22 16:40 | disposition left against medical advice (07) ==
LOC: ER 08:35 → SCU 08:35
PROVIDERS: ADMIT Family Medicine; ATTEND Family Medicine